=== PATIENT | male | born 1980 | race Caucasian/White ===

== ENCOUNTER 2019-01-05 13:34 | Emergency (ER) | payer MEDICAID, SELFPAY ==
[2019-01-05 13:38] VITALS: BP 124/82; PULSE 97; RESP 22; TEMP 36.8; O2SAT 97
[2019-01-05] MEDS: LORazepam 1 MG TAB PO (13:45)
[2019-01-05 13:52] VITALS: RESP 20
--- NOTE | 2019-01-05 13:59 | ED.GENADUL_ITS ---
Discharge Plan Disposition [facility] Condition: Stable Discharge Details Chief Complaint: GenMedical Clinical Impression: Depression, Suicidal thoughts, Alcohol abuse Primary Care Provider: Tiff,Local ED Provider: Shonna Weaver Home Meds and New Rx's Prescriptions: No Action lamotrigine [Lamictal] 200 mg Tablet 200 mg PO BID RF: 0 clonazepam [Klonopin] 2 mg Tablet See Rx Instructions .ROUTE .COMPLEX RF: 0 albuterol sulfate 90 mcg/actuation Hfa Aerosol Inhaler 2 puff INHALATION QID PRNRF: 0 escitalopram oxalate [Lexapro] 20 mg Tablet 20 mg PO DAILY RF: 0 aripiprazole [Abilify] 5 mg Tablet 5 mg PO DAILY RF: 0 Discharge Data Discharge Date/Time-TO BE ENTERED AT DEPARTURE: 01/06/19 13:35 Medical Decision Making <Luiza Daugherty MD - Last Filed: 01/12/19 09:53> Michele Monzon is a 38 y/o man with h/o bipolar disorder, anxiety, CHF, hepatitis C who presented to the emergency department with alcohol level greater than 0, anxiety, possible suicidal ideation. On exam patient is acutely nontoxic appearing but anxious, restless. No apparent hallucinations, denies suicidality. Neurologically nonfocal. Concern for acute intracranial trauma, possible suicidality. Doubt ACS. Exam/history is not consistent with pulmonary embolism, sepsis, meningitis, other acute emergent life-threatening process. Plan for CT head, EKG, p.o. Ativan, mental health evaluation at sobriety. CT head negative per radiology. Patient requesting IM Haldol, states no improvement in anxiety after p.o. Ativan. EKG with QTC 443. We will give IM Haldol. Patient also requesting his daily medications, states that he did not take any of his morning medications today. I did call his pharmacy, [facility], and confirmed his prescriptions with them. Patient eating calmly. Clinically sober on reassessment. Patient again states that he has had no suicidal thoughts or intent. He states that he feels safe at home. He denies any hallucinations. At this time only apparent concern for suicidality is that while patient was intoxicated he refused to answer suicidality/homicidality question on intake form, however mental health was concerned at the time of their initial assessment and requested that he be seen again by them before he is cleared for discharge. We will have mental health see patient in the emergency department. Patient is amenable to the plan. Medical Records Medical records reviewed: Yes I reviewed the patient's medical records. Imaging Data Radiologic Study: Attestation: I personally reviewed and interpreted this imaging study as follows: Radiologist's impression: EXAM: CT HEAD WO CLINICAL HISTORY: trauma, headache COMPARISON: No exams were available for comparison FINDINGS: There is a normal duarte-white matter differentiation. No acute intracranial hemorrhage, midline shift or mass effect is present. The ventricles are intact. The basilar cisterns are patent. There is mucosal thickening in a few ethmoid air cells. There is a mucous retention cyst or polyp in the right maxillary sinus. The remaining visualized paranasal sinuses and mastoid air cells are w ell pneumatized. The calvarium is intact. IMPRESSION: No acute intracranial process. The findings were discussed with Dr. Daugherty of the Emergency Department on the date of the examination. ECG Data Attestation: I personally reviewed and interpreted this ECG (s) as follows: Interpretation: EKG shows sinus rhythm at 81, normal axis, QTC 443, normal QRS, no STEMI <Boyd Galvan MD - Last Filed: 01/05/19 20:33> Received signout from Dr. Daugherty. Please see her note regarding details of initial presentation, plan of care. Patient stated he had ongoing suicidality with drinking, currently undomiciled, has been playing with guns and other high risk behaviors. Seeks voluntary admission for depression and alcohol abuse. CPSO assigned, screening medical laboratories obtained. Mild elevation of white blood cell count consistent with stress demargination. Labs otherwise reassuring, alcohol level is 45. Patient medically stable, evaluated by mental health screener, now awaits voluntary placement to appropriate institution. Signed out to Dr Roa pending reply from Brett [facility] regarding final disposition. Lab Data Lab results reviewed: Yes I reviewed the patient's lab results. Labs: Laboratory Results - last 24 hr 01/05/19 01/05/19 01/05/19 16:23 16:23 16:23 WBC 12.51 H RBC 5.35 Hgb 15.7 Hct 46.3 MCV 86.5 MCH 29.3 MCHC 33.9 RDW 13.6 Plt Count 280 MPV 8.9 Immature Gran % 0.5 Neutrophils % 66.5 Lymphocytes % 27.0 Monocytes % 4.3 Eosinophils % 1.1 Basophils % 0.6 Absolute Neutrophils 8.32 H Absolute Lymphocytes 3.38 Absolute Monocytes 0.54 Absolute Eosinophils 0.14 Absolute Basophils 0.08 Sodium 142 Potassium 3.7 Chloride 104 Carbon Dioxide 25.3 Anion Gap 12.7 H BUN 14 Creatinine 1.09 Estimated GFR/1.73 m2 >= 60.00 Glucose 96 Calcium 8.9 Total Bilirubin 0.5 AST 33 ALT 42 Alkaline Phosphatase 91 Total Protein 7.6 Albumin 3.8 TSH 1.09 Salicylates 4.2 Acetaminophen < 2 L Ethyl Alcohol 45.8 <Silas Roa MD - Last Filed: 01/06/19 22:48> Patient signed out to me pending acceptance to [place] in the morning. He has been medicated and has slept the entire shift. CPS) remains assigned to patient. Lab Data Lab results reviewed: Yes I reviewed the patient's lab results. <Shonna Weaver DO - Last Filed: 01/08/19 09:53> 0800 -- Please see previous providers notes regarding initial presentation and plan. Case endorsed to me to follow-up with care management regarding placement. No acute events overnight. Patient has been sleeping since 11 PM. Patient given his regular morning medications. 0916 --patient accepted to [facility] -accepting physician Dr. Farias. 1030 -- [employer]'s office and [employer] not driving at this time due to weather. [employer]'s department will be available at 5pm. 1330 -- Pt to go by ambulance to [facility]. HPI <Luiza Daugherty MD - Last Filed: 01/12/19 09:53> General Date/Time Provider Initiated Documentation: 01/05/19 13:40 . Limitations to Documentation: no limitations . Information obtained by: patient, police, RN notes reviewed and old records reviewed . HPI Narrative: Michele Monzon is a 38-year-old man with a history of bipolar disorder, CHF, anxiety presenting to the emergency department with anxiety. Patient brought here by police who also provides some history. Patient reports that he drinks 7 tall boy beers per day and has for some time. Patient reports that he had 3 this morning. Patient states that he has been living at his father's house, however his father now has a restraining order against him, although he states that he was unaware of this because he was drinking. Patient states that police were called, and he began to feel very anxious when police handcuffed him. Patient reports that he developed palpitations, chest tightness, and feeling of extreme anxiety while he was handcuffed. Patient reports that the symptoms other than anxiety have subsided at this point. Please report that patient was not cooperative at the scene, which required placement in handcuffs. They report that he hit his head on the window of the police vehicle multiple times en route to the emergency department. Patient reports that he does have a headache, but he denies any other pain. Patient's blood alcohol level at the scene was 100. Please report that patient was to be placed in protective custody for detox and mental health evaluation (patient refused to answer question on intake form regarding homicidality/suicidality, triggering mental health evaluation at time of sobr iety). Patient reports that his only current symptom is anxiety and mild headache, denies other pain, fevers, shortness of breath, cough, vomiting, diarrhea, hallucinations. He is actively requesting medication for anxiety. Patient denies suicidality, homicidality, hallucinations. Related Data Home Medications Medication Instructions Recorded Confirmed albuterol sulfate 2 puff INHALATION QID PRN 01/05/19 01/05/19 aripiprazole [Abilify] 5 mg PO DAILY 01/05/19 01/05/19 clonazepam [Klonopin] See Rx Instructions .ROUTE .COMPLEX 01/05/19 01/05/19 escitalopram oxalate [Lexapro] 20 mg PO DAILY 01/05/19 01/05/19 lamotrigine [Lamictal] 200 mg PO BID 01/05/19 01/05/19 Allergies Allergy/AdvReac Type Severity Reaction Status Date / Time No Known Allergies Allergy Unverified 01/05/19 13:41 General Stated Complaint: GenMedical MELVIN: 3 Review of Systems <Luiza Daugherty MD - Last Filed: 01/12/19 09:53> Narrative: Constitutional: denies fevers Eyes: denies eye pain ENT: denies facial pain, dental pain, sore throat Cardiovascular: denies chest pain Respiratory: denies SOB, cough GI: denies abdominal pain, vomiting, diarrhea : denies flank pain MSK: denies back pain, neck pain, arthralgias, myalgias Skin: denies rash Neuro: denies numbness, weakness, reports headache Psych: Denies suicidality, denies suicidal thoughts, denies homicidality, reports anxiety PFSH <Luiza Daugherty MD - Last Filed: 01/12/19 09:53> Medical History Bipolar 2 disorder (Acute) Congestive heart failure (Chronic) Depression (Chronic) H/O acute pancreatitis (Acute) Hepatitis C (Chronic) Multiple nodules of lung (Acute) Panic disorder (Acute) PTSD (post-traumatic stress disorder) (Acute) Social History Smoking/Tobacco Use Status: Current every day Alcohol Intake: current Alcohol Intake frequency: 3 or more drinks per day Alcohol type: beer Drug use: Never Substance use type: does not use Exam <Luiza Daugherty MD - Last Filed: 01/12/19 09:53> Narrative Exam Narrative: Constitutional: Acutely [id number], disheveled, very anxious but cooperative, otherwise conversing normally HENT: head normocephalic, 2 x 2 centimeter frontal hematoma without overlying skin changes, mucous membranes moist Eyes: conjunctiva normal, sclera normal, pupils 3mm b/l Neck: no stridor, normal ROM, trachea midline Resp: normal work of breathing, LCTAB Cardio: normal rate, normal rhythm, no murmur appreciated Skin: warm, dry, normal color, no rash Neuro: alert, not altered, grossly non-focal, normal tone, normal gait Ext: Moving all extremities equally, walking without issue Psych: Anxious mood, normal affect, normal behavior Course <Luiza Daugherty MD - Last Filed: 01/12/19 09:53> Vital Signs Vital signs: Vital Signs Temperature 36.8 C 01/05/19 13:38 Pulse 97 H 01/05/19 13:38 Respiratory Rate 22 01/05/19 13:38 Blood Pressure 124/82 01/05/19 13:38 Pulse Oximetry 97 01/05/19 13:38 Temperature 36.8 C 01/05/19 13:38 Temperature Source Skin 01/05/19 13:38 Pulse 97 H 01/05/19 13:38 Respiratory Rate 20 01/05/19 13:52 Respiratory Effort 01/05/19 13:52 Respiratory Depth Normal 01/05/19 13:52 Respiratory Pattern Normal 01/05/19 13:52 Blood Pressure 124/82 01/05/19 13:38 Blood Pressure Position Sitting 01/05/19 13:38 Pulse Oximetry 97 01/05/19 13:38 Oxygen Delivery Method Room Air 01/05/19 13:38 Oxygen Flow Rate 0 01/05/19 13:38 Pain Level 6 01/05/19 13:38 Sign Out <Luiza Daugherty MD - Last Filed: 01/12/19 09:53> Sign Out Data: Sign Out Comment: Patient signed out to Dr. Galvan at time of shift change pending mental health evaluation. Last updated by Luiza Daugherty MD at 01/05/19 16:02 Sign Out Comment: [facility] Last updated by Boyd Galvan MD at 01/05/19 21:08 Sign Out Comment: Pending acceptance and disposition to [facility]. Last updated by Silas Roa MD at 01/06/19 07:50
[2019-01-05 14:09] VITALS: RESP 22
--- NOTE | 2019-01-05 14:30 | DI.CT_ITS ---
EXAM: CT HEAD WO CLINICAL HISTORY: trauma, headache COMPARISON: No exams were available for comparison FINDINGS: There is a normal duarte-white matter differentiation. No acute intracranial hemorrhage, midline shift or mass effect is present. The ventricles are intact. The basilar cisterns are patent. There is m ucosal thickening in a few ethmoid air cells. There is a mucous retention cyst or polyp in the right maxillary sinus. The remaining visualized paranasal sinuses and mastoid air cells are well pneumatiz ed. The calvarium is intact. IMPRESSION: No acute intracranial process. The findings were discussed with Dr. Daugherty of the Emergency Department on the date of the examlida valera
[2019-01-05] MEDS: Haloperidol 5 MG/ML VIAL IM (14:47)
--- NOTE | 2019-01-05 14:51 | NUR.NOTE ---
Nursing Note: pt escorted to radiology department for CT scan. pt requesting haldol IM Just give me something to calm me down. Baseline EKG obtained and Haldol IM given per MD orders. Pt is currently sitting in room 3 on stretcher eating, calm at this time. Reports he is feeling calmer. CT results pending, will CTM.
[2019-01-05] MEDS: lamoTRIgine 100 MG TAB PO (15:00)
[2019-01-05] MEDS: ARIPiprazole 5 MG TAB PO (15:00)
[2019-01-05] MEDS: Escitalopram 20 MG TAB PO (15:00)
[2019-01-05 15:52] VITALS: BP 162/80; PULSE 101; RESP 18; O2SAT 95
[2019-01-05 16:35] LABS: Abs Immature Grans 0.06 k/cumm (0.0-0.09); Absolute Eosinophil Count 0.14 k/cumm (0.0-0.7); Absolute Lymphocyte Count 3.38 k/cumm (1.2-3.4); Absolute Monocyte Count 0.54 k/cumm (0.11-0.7); Absolute Neutrophil Count 8.32 k/cumm (1.2-6.7); Basophils % 0.6; Eosinophils % 1.1; HCT 46.3 % (40.0-50.0); HGB 15.7 g/dL (13.5-17.5); Immature Grans % 0.5; Mean Corp. HGB Concentration 33.9 g/dL (32.0-36.0); Mean Corpuscular Hemoglobin 29.3 pg (27.0-33.0); Mean Corpuscular Volume 86.5 fL (80-95); Mean Platelet Volume 8.9 fL (8.0-11.0); Monocytes % 4.3; Neutrophils % 66.5; Platelet Count 280 x1000/uL (130-400); RBC 5.35 m/cumm (4.50-6.00); RBC Distribution Width 13.6 % (11.8-14.1); White Blood Cell Count 12.51 k/cumm (4.4-10.8)
[2019-01-05 16:38] LABS: Absolute Basophil Count 0.08 k/cumm (0.0-0.2)
[2019-01-05 16:50] LABS: Salicylate 4.2 mg/dL (2.8-20.0)
[2019-01-05 16:51] LABS: Acetaminophen < 2 ug/mL (10-30)
[2019-01-05 17:01] LABS: ALT 42 U/L (16-63); AST 33 U/L (15-37); Albumin 3.8 g/dL (3.4-5.0); Alkaline Phosphatase 91 U/L (46-116); Anion Gap 12.7 mmol/L (3-11); BUN 14 mg/dL (7-18); Bilirubin, Total 0.5 mg/dL (0.2-1.0); CO2 25.3 mmol/L (21.0-32.0); CREATININE 1.09 mg/dL (0.70-1.30); Calcium 8.9 mg/dL (8.5-10.1); Chloride 104 mmol/L (98-107); ETHANOL BLOOD 45.8 mg/dL (<3); Glucose 96 mg/dL (70-100); Potassium 3.7 mmol/L (3.5-5.1); Sodium 142 mmol/L (136-145); TSH 1.09 uIU/mL (0.36-3.74); Total Protein 7.6 g/dL (6.4-8.2)
--- NOTE | 2019-01-05 18:04 | CMSP_ITS ---
Care Management Safety Plan VOLUNTARY FOR INPATIENT PSYCHIATRIC STABILIZATION. Michele is unable to engage with this scenario writer; is sleeping after administration of medication; CM does not disturb. Please refer to [facility] and MD notes for further information. CM spoke to [place] at 1800, BR reported not receiving demographic or insurance information; CM faxed to . CM spoke to at 2000, admissions reported the facility is taking patients this evening and Michele's referral is currently under review. Safety plan has been established with patient, and care team, to adhere to patient goals, identify restrictions based on behavioral status, address nutrition, and determine allowed personal belongings, tools for hygiene and personal care. Determine level of activity including ambulation, level of supervision, visitors, and determine privileges based on behaviors and level of engagement by pt. SAFETY PLAN: 1. Will remain on suicide precautions. In Paper Clothes 2. Will remain in room under direct supervision of one-on-one staff at all times provided by CPSO; [place], SCHEDULER MAINTENANCE territory service representative. 3. May have paper cups, plates, finger foods. 4. Follow [facility] Management of the Admitted Behavioral Health Patient policy. 5. Comfort bath system only. 6. No personal belongings 7. Visitors-No visitors at this time 8. Permitted television if admitted to M/S. 9. Bathroom privileges with escort per RN. 10. Phone: limited to legal contact at this time. 11. Due to VOLUNTARY status, if patient wishes to leave [facility], the [facility] insole department worker must be contacted to re-evaluate patient prior to patient exiting the building. Patient is currently voluntarily at [facility] and seeking inpatient admission when a bed becomes available. [facility] Frontline Ampoule Washing Machine Operator will continue seeking placement. Please contact the Dietary Aide Teacher Power Press Operator ([phone]) and [facility] Ampoule Washing Machine Operator ([phone]) for any needed changes in the Safety Plan. Safety plan has been provided to interdepartmental care team.
--- NOTE | 2019-01-05 19:42 | NUR.NOTE ---
Nursing Note: Care assumed from Karuna Judd RN at this time. Pt remains in room 1:1 with CPSO. Appears to be asleep. RR even and unlabored.
[2019-01-05] MEDS: clonazePAM 1 MG TAB PO (20:55)
[2019-01-05 20:59] VITALS: BP 149/76; PULSE 97; RESP 18; O2SAT 96
--- NOTE | 2019-01-06 06:27 | NUR.NOTE ---
Nursing Note: Report given to Janae Staples RN at this time.
--- NOTE | 2019-01-06 09:40 | NUR.NOTE ---
Nursing Note: attempted report they will call back.
--- NOTE | 2019-01-06 10:08 | NUR.NOTE ---
Nursing Note: attempted to call report again. they will call back.
[2019-01-06] MEDS: lamoTRIgine 100 MG TAB 200 MG PO (12:33)
[2019-01-06] MEDS: Escitalopram 20 MG TAB PO (12:34)
[2019-01-06] MEDS: ARIPiprazole 5 MG TAB PO (12:34)
[2019-01-06] MEDS: clonazePAM 1 MG TAB PO (12:36)
[2019-01-06] MEDS: clonazePAM 1 MG TAB (12:40)
--- NOTE | 2019-01-06 12:53 | NUR.NOTE ---
Nursing Note: pt is awake now and requested his morning medication. pt upset about not knowing that there was a restraining ordered against him. pt very anxious and tearful asking for some ativan and or haldol or something to calm him down. pt very polite, pleasant and cooperative. pt states he is still ok with going to [facility]. pt denies any SI or HI. pt reports that he has been depressed for quite some time. pt agreeable to go to [facility] because it is closer to [place] where hopefully a friend will take him in. pt reports mild headache and just anxious but states he does not think this is due to the etoh withdrawal. pt reports he has withdrawn in the past with seizures. updated . [facility] for transport.
[2019-01-06] MEDS: LORazepam 0.5 MG TAB (13:02)
[2019-01-06 13:37] VITALS: BP 132/84; PULSE 74; RESP 16; TEMP 36.9; O2SAT 98
--- NOTE | 2019-01-06 13:39 | NUR.NOTE ---
Nursing Note:nicotine inhaler sent with ems for pt use.
== END 2019-01-06 13:35 | disposition short-term general hospital (02) ==
PROVIDERS: Emergency Medicine; Emergency Provider Physician Assistant
DX: F41.8 Other specified anxiety disorders (principal); R51 Headache; F10.10 Alcohol abuse, uncomplicated; W22.8XXA Striking against or struck by other objects, initial encounter
CPT/HCPCS: 36415; 80053; 93005; 99285; 70450; 80320; 80329; 81003; 84443; 85025; 93010; 99284; J1630